=== PATIENT | female | born 1995 | race Caucasian/White ===

== ENCOUNTER 2023-07-09 07:21 | Inpatient (IN) ==
[2023-07-09] MEDS ORDERED: Lidocaine 1% VIAL 10 MG/ML 30 ML VIAL INJ PRN (08:25)
[2023-07-09] MEDS ORDERED: Prochlorperazine 5 mg/ml 2 ml VIAL (10 mg) IV PRN (08:25)
[2023-07-09] MEDS: Lactated Ringers 1000 ml BAG 1,000 ML IV ONE (08:30)
[2023-07-09 10:03] LABS: Urine Benzodiazepine Screen None Detected (None Detect); Urine Opiates Screen None Detected (None Detect)
[2023-07-09 10:07] LABS: Hematocrit 28.9 % (35-45); Hemoglobin 9.3 g/dL (11.5-14.3); Mean Corpuscular Hemoglobin 23.2 pg (27-33); Mean Corpuscular Hgb Conc 32.2 g/dL (31-36); Mean Corpuscular Volume 72.1 fL (80-97); Mean Platelet Volume 9.1 fL (7.5-11.2); Platelet Count 197 10^3/uL (150-450); Red Blood Count 4.01 10^6/uL (3.63-4.92); Red Cell Distribution Width 16.2 % (12-17); White Blood Count 8.4 10^3/uL (3.8-11.8)
[2023-07-09 10:41] LABS: ABS Basophils 0.1 10^3/uL (0.0-0.1); ABS Eosinophils 0.1 10^3/uL (0.0-0.5); ABS Monocytes 0.7 10^3/uL (0.0-0.9); ABS Neutrophils 5.6 10^3/uL (1.5-7.6); ABS Nucleated RBC 0.01 10^3/ul; Anisocytosis 2+; Large Platelets Present; Lymphocyte % 23.4 %; Microcytosis 2+; Nucleated Red Blood Cells % 0.1 %/100WBC (0.0-0.8); Polychromasia 2+
[2023-07-09] MEDS: Lactated Ringers 1000 ml BAG 1,000 ML IV SCH ×2 (10:52→13:41)
[2023-07-09] MEDS ORDERED: Oxytocin in LR 20,000 MILLI.UNIT/1,000 ML BAG IV SCH (11:10)
[2023-07-09] MEDS ORDERED: Sodium Citrate/Citric Acid LIQ 15 ML UDC PO PRN (13:05)
[2023-07-09] MEDS: OBEPIDURAL (200 ML) 200 ML EPIDURAL SCH (13:34)
[2023-07-09 14:50] LABS: Urine Appearance Clear; Urine Bilirubin Negative (Negative); Urine Blood Negative (Negative); Urine Color Colorless; Urine Glucose Negative (Negative); Urine Ketones Negative (Negative); Urine Nitrite Negative (Negative); Urine Protein Negative (Negative); Urine Specific Gravity 1.011 (1.002-1.030); Urine Urobilinogen Negative (Negative); Urine pH 7.5 (5.0-8.0)
[2023-07-09] MEDS: Phenylephrine 40 mcg/mL 10mL (400mcg) SYRINGE IV PUSH PRN (15:02)
[2023-07-09] MEDS: Oxytocin in LR 20,000 MILLI.UNIT/1,000 ML BAG IV SCH (16:21)
[2023-07-10] MEDS ORDERED: Glycerin ADULT 2.4 gm SUPP PR PRN (04:37)
[2023-07-10] MEDS ORDERED: Lactated Ringers 1000 ml BAG 1,000 ML IV SCH (05:00)
[2023-07-10] MEDS: Witch Hazel PAD JAR TOPICAL PRN (05:28)
[2023-07-10] MEDS: Dibucaine 1% OINT 28.35 GM TUBE PR PRN (05:28)
[2023-07-10] MEDS: Buffered Lidocaine 1% SYRIN 1 ml INTRADERM ONE (09:44)
[2023-07-10] MEDS: Lactated Ringers 1000 ml BAG 1,000 ML IV ONE (09:44)
[2023-07-10] MEDS: OBEPIDURAL (200 ML) 200 ML EPIDURAL ONE (09:45)
[2023-07-10] MEDS: Lidocaine 1.5% EPI 1:200,000 30 ML SDV ONE (09:45)
[2023-07-11 06:54] LABS: ABS Basophils 0.1 10^3/uL (0.0-0.1); ABS Eosinophils 0.2 10^3/uL (0.0-0.5); ABS Lymphocytes 2.6 10^3/uL (1.0-4.8); ABS Monocytes 0.7 10^3/uL (0.0-0.9); ABS Neutrophils 4.5 10^3/uL (1.5-7.6); Eosinophil % 2.2 %; Hematocrit 25.3 % (35-45); Hemoglobin 8.1 g/dL (11.5-14.3); Lymphocyte % 32.4 %; Mean Corpuscular Hgb Conc 32.2 g/dL (31-36); Mean Corpuscular Volume 71.6 fL (80-97); Mean Platelet Volume 8.8 fL (7.5-11.2); Platelet Count 188 10^3/uL (150-450); Red Blood Count 3.54 10^6/uL (3.63-4.92); Red Cell Distribution Width 16.4 % (12-17); White Blood Count 8.1 10^3/uL (3.8-11.8)
[2023-07-11] MEDS: Iron Sucrose 200 MG in NS 0.9% 100 ml BAG 100 ML IVPB ONE (16:12)
[2023-07-12 08:00] VITALS: BP 104/74
[2023-07-12] MEDS: medroxyPROGESTERone ACETATE 150 MG/ML VIAL IM ONE (11:18)
== END 2023-07-12 16:10 | disposition home or self-care (01) | DRG 560 ==
LOC: MCHOBOUT 07:21 → MCHOB 08:38
PROVIDERS: ADMIT Registered Nurse; ATTEND Registered Nurse